=== PATIENT | male | born 1955 | race Caucasian/White ===

== ENCOUNTER → 2016-11-19 | Outpatient (CLI) | payer OTHER ==
--- NOTE | 2016-11-19 08:55 | RAD ---
EXAM: CT of the chest without intravenous contrast. HISTORY: Persistent cough and shortness of breath. TECHNIQUE: Computed tomography of the chest was performed without intravenous contrast. COMPARISON: None. FINDINGS: Images of the upper abdomen reveal a cyst at the left renal upper pole laterally measuring 5.9 x 4.9 cm. There are cortical scars along the right kidney. Bone windows reveal no suspicious lesions. There are no pathologically enlarged mediastinal or axillary lymph nodes. There is no pleural or pericardial effusion. The heart is not enlarged. There are atherosclerotic calcifications of the coronary arteries. Lung windows reveal no infiltrates. There is a calcified granuloma in the lingula. IMPRESSION: 1. No infiltrates. No suspicious lesions. 2. Coronary atherosclerotic calcifications. *One or more of the following individualized dose reduction techniques were utilized for this examination: 1. Automated exposure control. 2. Adjustment of the mA and/or kV according to patient size. 3. Use of iterative reconstruction technique.
== END | disposition home or self-care (01) ==
LOC: CT 08:11
PROVIDERS: ATTEND Internal Medicine Pulmonary Disease
DX: I25.10 Atherosclerotic heart disease of native coronary artery without angina pectoris (principal); L92.8 Other granulomatous disorders of the skin and subcutaneous tissue; N28.1 Cyst of kidney, acquired
CPT/HCPCS: 71250

== ENCOUNTER → 2019-04-02 | Outpatient (CLI) | payer OTHER ==
--- NOTE | 2019-04-02 15:59 | KCIC ---
Chest radiograph 04/02/2019 12:00 AM INDICATION: Bronchitis with bronchospasm. Productive cough for 2 weeks. COMPARISON: CT chest November 19, 2016 TECHNIQUE: Frontal and lateral views of the chest are provided. FINDINGS: The cardiomediastinal silhouette is within normal limits. There are no pleural effusions. There is no pulmonary vascular congestion. There is no pneumothorax. Bronchial wall thickening is suggestive of bronchitis. No focal airspace consolidation. No significant osseous abnormality is identified. IMPRESSION: Findings are suggestive of bronchitis without definite focal airspace consolidation. Electronically signed by: Angélica Ivey MD (04/02/2019 3:56 PM) [id number]
== END | disposition home or self-care (01) ==
LOC: KCIC 15:04
PROVIDERS: ATTEND Family Medicine
DX: J20.9 Acute bronchitis, unspecified (principal)
CPT/HCPCS: 71046

== ENCOUNTER → 2019-04-22 | Outpatient (CLI) | payer OTHER ==
--- NOTE | 2019-04-23 12:13 | KCIC ---
EXAM: Supine AP view of the abdomen DATE: 04/22/2019 12:00 AM INDICATION: Renal stones COMPARISON: No Prior FINDINGS: Marked colonic stool content is seen. This obscures evaluation of the renal fossa submitted for evaluation for renal calculi is markedly limited. No evidence of bowel obstruction. IMPRESSION: 1. Evaluation for renal calculi is markedly limited given overlying large volume stool. Electronically signed by: Nathan Spring MD (04/23/2019 12:10 PM) [facility]
== END | disposition home or self-care (01) ==
LOC: KCIC 11:31
PROVIDERS: ATTEND Specialist
DX: N20.0 Calculus of kidney (principal)
CPT/HCPCS: 74018